=== PATIENT | female | born 1985 | race Caucasian/White ===

== ENCOUNTER 2019-09-08 15:25 | Outpatient (RCR) | payer OTHER, SELFPAY ==
[2019-08-11 11:09] VITALS: BP 119/61; PULSE 107
[2019-08-18 11:22] VITALS: BP 114/58; PULSE 87
[2019-08-25 10:42] VITALS: BP 117/63; PULSE 107
[2019-09-01 11:20] VITALS: BP 124/68; PULSE 80
[2019-09-08 16:21] VITALS: BP 107/64; PULSE 90
== END 2019-09-16 08:00 | disposition home or self-care (01) ==
LOC: ANHOBOP 15:25
PROVIDERS: PCP Internal Medicine Infectious Disease; Visit Provider Obstetrics & Gynecology
DX: O24.419 Gestational diabetes mellitus in pregnancy, unspecified control (principal); Z3A.34 34 weeks gestation of pregnancy; Z3A.35 35 weeks gestation of pregnancy; Z3A.36 36 weeks gestation of pregnancy; Z3A.37 37 weeks gestation of pregnancy; Z3A.38 38 weeks gestation of pregnancy
CPT/HCPCS: 59025

== ENCOUNTER 2019-09-14 10:00 | Inpatient (IN) | payer OTHER, SELFPAY ==
[2019-09-14] VITALS (65 sets, daily range): BP systolic 86–227; BP diastolic 51–170; PULSE 67–141; RESP 14–23; TEMP 36.6–37.1; O2SAT 98–100; BMI 45.1
--- NOTE | 2019-09-14 10:00 | LDADM ---
This patient, Rajani Guo, was admitted to Labor/Delivery/Recovery 118 on 09/14/19 at 10:00. Plans for labor, pain management and were discussed with patient. Patient/family oriented to hospital policies and general routines including ID bracelet, bed and alarms, visiting hours, pain management, procedures, bathroom and other care routines, personal items, smoking policy, room service/diet and guest tray routines, infant security routines, and visiting hours. Patient/Family are encouraged to report perceived risks to care and to ask questions if they do not understand what they are told or what they should do. See OBIX for further documentation.
--- NOTE | 2019-09-14 10:42 | P.PNAN_ITS ---
Anes - Initial Pre Proc Eval Procedure: Operation Date: 09/14/19 12:00 Proposed Procedures p Repeat Section - Osbaldo Mckeon MD Date/Time: 09/14/19 10:42 Surgeon: Osbaldo Mckeon MD Pre Op Diagnosis: Prior Patient Data Age: 33 Gender: F Height: 5 ft 2 in Weight: 112 kg Last Vital Signs Pulse 93 09/14/19 10:31 BP 131/71 09/14/19 10:31 Allergies Allergy/AdvReac Type Severity Reaction Status Date / Time No Known Allergies Allergy Verified 08/18/19 11:01 Home Medications Medication Instructions Recorded Confirmed Type PNV cmb#95-ferrous fumarate-FA 1 tablet PO DAILY 08/18/19 08/25/19 History [] acetaminophen [Tylenol Extra 1,000 mg PO Q6H PRN 08/18/19 08/25/19 History Strength] cetirizine [Zyrtec] 10 mg PO DAILY PRN 08/18/19 08/25/19 History Patient hx anesthesia problems: none Family hx anesthesia problems: none [facility] Past Medical History Medical History (Updated 09/14/19 @ 10:42 by Joaquin Mitchell MD) Morbid obesity Surgical History Surgical History (Updated 09/14/19 @ 10:43 by Joaquin Mitchell MD) History of section Anes - Eval Final PreProcedure Day of Procedure 09/14/19 10:42 Patient weight: morbidly obese Heart: regular rate and rhythm Lungs: clear to auscultation Airway: Mallampati scale class II Neurological: alert and oriented Last oral intake: >/= 8 hours ASA classification: III Emergent: no Anesthetic plan: proceed Anesthesia type and monitoring: regional spinal and standard monitoring Informed Consent: The patient's anesthetic plan and its attendant risks and benefits were discussed with the patient/family/POA. Questions were solicited and answers provided to the satisfaction of the patient/family/POA.
[2019-09-14] MEDS: LACTATED RINGERS 1,000 ML 125 ML IV CONT ×2 (10:55→11:21)
[2019-09-14 10:56] LABS: Basophils Percent Auto 0.2 % (0.2-1.2); Eosinophils Absolute Auto 0.2 K/mm3 (0-0.3); Eosinophils Percent Auto 1.6 % (0-4.4); Hemoglobin 12.2 g/dL (12.0-15.0); Immature Granulocyte Absolute 0.06 K/mm3 (0.00-0.031); Immature Granulocyte Percent A 0.4 % (0-0.5); Lymphocytes Absolute Auto 2.31 K/mm3 (0.9-3.2); Lymphocytes Percent Auto 17.3 % (18.3-44.2); Mean Corpuscular HGB Conc 34.9 g/dl (32-36); Mean Corpuscular Hemoglobin 30.3 pg (26-34); Mean Corpuscular Volume 86.8 fl (80-100); Mean Platelet Volume 10.8 fl (7.4-10.4); Monocytes Absolute Auto 1.2 K/mm3 (0.1-0.6); Monocytes Percent Auto 8.7 % (2.6-8.5); Neutrophils Absolute Auto 9.6 K/mm3 (1.3-6.7); Neutrophils Percent Auto 71.8 % (45.5-73.1); Platelet Count Result 347 k/mm3 (150-375); Red Blood Count 4.03 M/mm3 (4.2-5.4); Red Cell Distribution Width 13.1 % (11.5-14.5); White Blood Count 13.4 K/mm3 (4.5-10.0)
[2019-09-14 11:08] LABS: Glucose Point of Care 76 (65-105)
--- NOTE | 2019-09-14 11:08 | PM.IMHP ---
H&P: HPI History of Present Illness Chief complaint: Prior Narrative: 33-year-old 3 para 1011 at 39 1/7 weeks gestation here for repeat delivery. She has good movement. She is not feeling contractions. She has no leakage of fluid or vaginal bleeding. Her was complicated by an abnormal glucose tolerance test. However, despite several conversations and phone calls, the patient never did go for diabetic education, nutrition counseling, or arrange any home glucose monitoring. We have checked random Accu-Cheks intermittently, which have all been normal. Her most recent ultrasound exam at 33 weeks 2 days gestation demonstrated an estimated weight of 4 lb 13 oz, transverse lie, and a normal amniotic fluid volume. GBS culture was negative. Her blood type is AB-positive, she is rubella immune, hepatitis-B surface antigen negative, RPR negative, and HIV negative. Ultrasound exam suggests normal anatomy. Also, she had a noninvasive screening test which demonstrated low fraction, but she declined a referral to perinatology / genetics. Review of Systems Review of Systems: All systems reviewed & are unremarkable except as noted in HPI and below PMFSH Past Medical History Medical History Morbid obesity Surgical History Surgical History History of section Social History Social History Smoking status: Never smoker Spiritual care concerns: No Comments Past OB: SAB x 1, CS at 41 1/7 weeks of boy weighing 10#12oz. Past [employer]: Menarche at 13 with monthly menses lasting 4-6 days each. No history of abnodmal pap or STI. Meds Home Medications and Allergies Home Medications Medication Instructions Recorded Confirmed Type PNV cmb#95-ferrous fumarate-FA 1 tablet PO DAILY 08/18/19 08/25/19 History [] acetaminophen [Tylenol Extra 1,000 mg PO Q6H PRN 08/18/19 08/25/19 History Strength] cetirizine [Zyrtec] 10 mg PO DAILY PRN 08/18/19 08/25/19 History Allergies Allergy/AdvReac Type Severity Reaction Status Date / Time No Known Allergies Allergy Verified 08/18/19 11:01 Vital Signs Vital Signs - 24 hr 09/14/19 10:31 09/14/19 10:46 09/14/19 11:01 Pulse Rate 93 101 H 96 Blood Pressure 131/71 128/82 126/70 Exam Const: Orientation/consciousness: patient oriented x3 Other: Well-developed, well-nourished female in no acute distress. Neck: Thyroid: thyroid normal Lymphatic: no lymphadenopathy noted (in neck, axilla or inguinal nodes) Resp: Effort & Inspection: normal respiratory effort Auscultation: clear to auscultation bilaterally Cardio: Rate: regular rate Rhythm: regular rhythm Heart sounds: S1 normal heart sound present and S2 normal heart sound present GI: Other: ABD: Soft, nontender, nondistended. No guarding or rebound tenderness. No hepatosplenomegaly. Gravid. NST reactive. TOCO: irregular contractions. : General: Yes no CVA tenderness Other: Cervix closed / thick at last exam. Back/Spine/Pelvis: Back: no CVA tenderness Skin: General skin exam: normal color and no rashes or lesions noted Neuro: General: patient oriented x3 Extrem: Other: Extremities: nontender with no edema Psych: Mental Status: mental status grossly normal Affect: normal affect H&P: Results Labs Labs: Short CBC 09/14/19 Range/Units 10:51 WBC 13.4 H (4.5-10.0) K/mm3 Hgb 12.2 (12.0-15.0) g/dL Hct 35.0 L (37.0-47.0) % Plt Count 347 (150-375) k/mm3 Assessment and Plan Assessment and plan (1) Term : Code(s): Z34.90 - Encounter for supervision of normal , unspecified, unspecified trimester Status: Acute (2) Gestational diabetes mellitus: Code(s): O24.419 - Gestational diabetes mellitus in , unspeci
--- NOTE | 2019-09-14 13:24 | PM.OBPRVD ---
OB - Delivery Note Procedure Delivery date: 09/14/19 Procedure: Procedures Operation Date: 09/14/19 12:00 Actual Procedures Side Surgeon p Repeat Section Not Applicable Osbaldo Mckeon MD events: Previous and Gestational Diabetes Delivery monitor: external FHT and external uterine Route of delivery: (LTCS) Specimen: Yes (Placenta, cord blood) Estimated blood loss (mL): 275 Anesthesia type: Spinal Disposition: PACU Complications: None Narrative: The patient was taken to the operating room where she was prepared and draped in the usual sterile fashion in dorsal supine position with a leftward tilt. She received cefazolin preoperatively. Spinal anesthesia was found to be adequate. A Pfannenstiel skin incision was made along the previous scar line and was carried through to the underlying layer of the fascia. The fascia was incised in the midline and the incision was extended laterally. The fascia was dissected free of the underlying rectus muscles. The rectus muscles were in the midline. The peritoneum was identified, tented up and entered sharply. The peritoneal incision was extended superiorly and inferiorly with good visualization of the bladder. The bladder blade was placed. The vesicouterine peritoneum was identified, tented up and entered sharply. The incision was extended laterally and the bladder flap was developed. The bladder blade was replaced. The uterus was then incised sharply in a transverse fashion along the lower uterine segment. The incision was extended laterally. The 's head was delivered atraumatically to the sterile field, followed by the body. The nose and mouth were bulb suctioned. After a delay, the cord was clamped and cut. The infant was handed off the field. Cord blood was collected. The placenta was removed manually and was passed off the field. The uterus was exteriorized and cleared of all clots and debris. The uterine incision was reapproximated using 0 Monocryl in a running, locked fashion. Excellent hemostasis resulted as did excellent reapproximation of the normal anatomy. The uterus was returned the abdomen. The pelvis was irrigated copiously with warmed normal saline. Rigorous hemostasis was assured. The fascial layer was reapproximated using 0 Vicryl in a running fashion. The skin was closed with a running, subcuticular stitch of 4 0 Vicryl. Dermaflex was applied externally. Sponge, lap, needle and instrument counts were correct. The patient was taken to the recovery room in stable condition. The infant went to the nursery in stable condition. I was present and scrubbed the entire procedure. [place] Baby Date of : 09/14/19 Time of : 12:17 Weeks of gestation at delivery: 39 gender: Male Weight (pounds): 7 Weight (ounces): 12 presentation: vertex Placenta delivery description: Manual Removal and Normal Configuration cord vessel description: 3 Vessels score one minute: 8 score five minutes: 9
--- NOTE | 2019-09-14 13:26 | PM.OBDSVD ---
DS: Admitting Diagnosis Admitting Diagnosis Admitting Diagnosis: IUP at 39 2/7 Prior Gestational diabetes, not compliant, not controlled <Osbaldo Mckeon MD - Last Filed: 10/03/19 12:28> DS: Discharge Diagnosis Discharge Diagnosis (1) History of section: Code(s): Z98.891 - History of uterine scar from previous surgery <Osbaldo Mckeon MD - Last Filed: 10/03/19 12:28> Status: Acute <Osbaldo Mckeon MD - Last Filed: 10/03/19 12:28> (2) Gestational diabetes mellitus: Code(s): O24.419 - Gestational diabetes mellitus in , unspecified control <Osbaldo Mckeon MD - Last Filed: 10/03/19 12:28> Status: Acute <Osbaldo Mckeon MD - Last Filed: 10/03/19 12:28> (3) Term : Code(s): Z34.90 - Encounter for supervision of normal , unspecified, unspecified trimester <Osbaldo Mckeon MD - Last Filed: 10/03/19 12:28> Status: Acute <Osbaldo Mckeon MD - Last Filed: 10/03/19 12:28> OB - DS: Summary OB Procedures : None <Zaki Stein MD - Last Filed: 09/16/19 07:53> OB Procedures Intrapartum: <Zaki Stein MD - Last Filed: 09/16/19 07:53> OB Procedures: : None <Zaki Stein MD - Last Filed: 09/16/19 07:53> Peripartum Data Procedures: Procedures Operation Date: 09/14/19 12:00 Actual Procedures Side Surgeon p Repeat Section Not Applicable Osbaldo Mckeon MD <Osbaldo Mckeon MD - Last Filed: 10/03/19 12:28> Time Spent with Patient Time attestation: Total time spent providing and/or coordinating discharge services: <Osbaldo Mckeon MD - Last Filed: 10/03/19 12:28> DS: Data Data Completed and Pending Pending studies at discharge: Pending at discharge 09/14/19 13:03 Surgical [PTH] Routine <Osbaldo Mckeon MD - Last Filed: 10/03/19 12:28> Labs on day of discharge: Labs from last 24 hours 09/14/19 09/14/19 09/14/19 11:06 10:51 10:51 WBC RBC Hgb Hct MCV MCH MCHC RDW Plt Count MPV Immature Gran % (Auto) Neut % (Auto) Lymph % (Auto) [place] % (Auto) Eos % (Auto) Baso % (Auto) Lymph # (Auto) [place] # (Auto) Eos # (Auto) Baso # (Auto) Abs Immat Gran (auto) Absolute Neuts (auto) Absolute Nucleated RBC Nucleated RBC % POC Capillary Glucose 76 RPR Pending Blood Type AB Positive Antibody Screen Negative 09/14/19 10:51 WBC 13.4 H RBC 4.03 L Hgb 12.2 Hct 35.0 L MCV 86.8 MCH 30.3 MCHC 34.9 RDW 13.1 Plt Count 347 MPV 10.8 H Immature Gran % (Auto) 0.4 Neut % (Auto) 71.8 Lymph % (Auto) 17.3 L [place] % (Auto) 8.7 H Eos % (Auto) 1.6 Baso % (Auto) 0.2 Lymph # (Auto) 2.31 [place] # (Auto) 1.2 H Eos # (Auto) 0.2 Baso # (Auto) 0.0 Abs Immat Gran (auto) 0.06 H Absolute Neuts (auto) 9.6 H Absolute Nucleated RBC 0.0 Nucleated RBC % 0.0 POC Capillary Glucose RPR Blood Type Antibody Screen <Osbaldo Mckeon MD - Last Filed: 10/03/19 12:28> Discharge Plan Discharge Attending physician on discharge: Osbaldo Mckeon <Osbaldo Mckeon MD - Last Filed: 10/03/19 12:28> Osbaldo Mckeon <Zaki Stein MD - Last Filed: 09/16/19 07:53> Consulting providers: Joaquin Mitchell <Osbaldo Mckeon MD - Last Filed: 10/03/19 12:28> Discharging Clinician: Osbaldo Mckeon <Osbaldo Mckeon MD - Last Filed: 10/03/19 12:28> Osbaldo Mckeon <Zaki Stein MD - Last Filed: 09/16/19 07:53> Patient Disposition: Home, Self-Care <Osbaldo Mckeon MD - Last Filed: 10/03/19 12:28> Activity: may shower, may drive after 2 weeks and pelvic rest <Osbaldo Mckeon MD - Last Filed: 10/03/19 12:28> may shower, may drive after 2 weeks and pelvic rest <Zaki Stein MD - Last Filed: 09/16/19 07:53> Diet:
[2019-09-14] MEDS: OXYTOCIN 30 UNITS/NS 500 ML 30 UNITS/500 ML BAG 125 UNITS (14:21)
--- NOTE | 2019-09-14 17:39 | PC.NURSE ---
1510 Pt admitted to second floor OB room 286 per stretcher from labor and delivery after repeat delivery of viable male infant at [address] Mckeon. Mother is and is choosing to breast feed infant. FOB has been with pt, but gone at this time. Mother oriented to room, staffing and procedures; admission folder reviewed. Pt's VSS and assessment WNL.
[2019-09-15] VITALS: BP 135/72; PULSE 108; RESP 20; TEMP 36.9
[2019-09-15 04:00] VITALS: BP 139/83; PULSE 110; RESP 20; TEMP 36.7
[2019-09-15 05:31] LABS: Basophils Percent Auto 0.2 % (0.2-1.2); Eosinophils Absolute Auto 0.3 K/mm3 (0-0.3); Eosinophils Percent Auto 1.5 % (0-4.4); Hematocrit 33.2 % (37.0-47.0); Hemoglobin 11.3 g/dL (12.0-15.0); Immature Granulocyte Absolute 0.09 K/mm3 (0.00-0.031); Immature Granulocyte Percent A 0.5 % (0-0.5); Lymphocytes Absolute Auto 1.64 K/mm3 (0.9-3.2); Lymphocytes Percent Auto 9.2 % (18.3-44.2); Mean Corpuscular Hemoglobin 30.2 pg (26-34); Mean Corpuscular Volume 88.8 fl (80-100); Mean Platelet Volume 11.3 fl (7.4-10.4); Monocytes Absolute Auto 1.3 K/mm3 (0.1-0.6); Monocytes Percent Auto 7.4 % (2.6-8.5); Neutrophils Absolute Auto 14.5 K/mm3 (1.3-6.7); Neutrophils Percent Auto 81.2 % (45.5-73.1); Platelet Count Result 320 k/mm3 (150-375); Red Blood Count 3.74 M/mm3 (4.2-5.4); Red Cell Distribution Width 13.3 % (11.5-14.5); White Blood Count 17.8 K/mm3 (4.5-10.0)
[2019-09-15 06:42] LABS: Rapid Plasma Reagin Non-Reactive (NonReactive)
[2019-09-15] MEDS: MULTIVIT/MIN/PREN/FOL AC/IRON TABLET 1 TAB PO (07:32)
[2019-09-15] MEDS: IBUPROFEN 600 MG TABLET PO ×2 (07:33→18:11)
[2019-09-15] MEDS: DOCUSATE SODIUM 100 MG CAPSULE PO ×2 (07:33→18:10)
[2019-09-15 08:10] VITALS: BP 138/91; PULSE 108; RESP 18; TEMP 37.1; O2SAT 96
--- NOTE | 2019-09-15 08:39 | PM.OBPNVD ---
OB - PN: Subj Subjective Date/time seen: 09/15/19 08:39 Narrative: Pain OK. Tolerating diet. Would like circumcision for son. OB - PN: Obj Data Labs CBC & Chem 7: 09/15/19 04:07 Labs: Laboratory Results - last 24 hr 09/14/19 09/14/19 09/14/19 10:51 10:51 10:51 WBC 13.4 H RBC 4.03 L Hgb 12.2 Hct 35.0 L MCV 86.8 MCH 30.3 MCHC 34.9 RDW 13.1 Plt Count 347 MPV 10.8 H Immature Gran % (Auto) 0.4 Neut % (Auto) 71.8 Lymph % (Auto) 17.3 L [place] % (Auto) 8.7 H Eos % (Auto) 1.6 Baso % (Auto) 0.2 Lymph # (Auto) 2.31 [place] # (Auto) 1.2 H Eos # (Auto) 0.2 Baso # (Auto) 0.0 Abs Immat Gran (auto) 0.06 H Absolute Neuts (auto) 9.6 H Absolute Nucleated RBC 0.0 Nucleated RBC % 0.0 POC Capillary Glucose RPR Non-reactive Blood Type AB Positive Antibody Screen Negative 09/14/19 09/15/19 11:06 04:07 WBC 17.8 H RBC 3.74 L Hgb 11.3 L Hct 33.2 L MCV 88.8 MCH 30.2 MCHC 34.0 RDW 13.3 Plt Count 320 MPV 11.3 H Immature Gran % (Auto) 0.5 Neut % (Auto) 81.2 H Lymph % (Auto) 9.2 L [place] % (Auto) 7.4 Eos % (Auto) 1.5 Baso % (Auto) 0.2 Lymph # (Auto) 1.64 [place] # (Auto) 1.3 H Eos # (Auto) 0.3 Baso # (Auto) 0.0 Abs Immat Gran (auto) 0.09 H Absolute Neuts (auto) 14.5 H Absolute Nucleated RBC 0.0 Nucleated RBC % 0.0 POC Capillary Glucose 76 RPR Blood Type Antibody Screen OB - PN A/P Plan Comments: A: POD#1, doing well. P: Routine care. Reviewed circ. Exam Narrative: Exam Narrative: AVSS I/O OK ABD soft, nontender, fundus firm. Incision c/d/i. EXT nontender
--- NOTE | 2019-09-15 09:05 | WPDANLDNPN2 ---
Anes-Prog Note L&D-Neuraxial Date/Time: 09/15/19 09:05 Neuraxial medications: intrathecal PF morphine Opiod-related complaints: none Patient feedback: Patient satisfied with post-operative pain management.
--- NOTE | 2019-09-15 09:05 | WPDANLDPN2 ---
Anes-Prog Note L&D Date/Time: 09/15/19 09:05 Comfortable throughout: section Neuraxial method: spinal Epidural/Spinal procedure site: clean & non-tender Neuro status: Neuro function grossly intact. Cardiovascular status: normal Respiratory status: normal Airway patency: baseline Mental status: baseline Post-Op hydration status: normal Vital Signs: Last Vital Signs Temp 36.7 C 09/15/19 04:00 Pulse 110 H 09/15/19 04:00 Resp 20 09/15/19 04:00 BP 139/83 09/15/19 04:00 Pulse Ox 99 09/14/19 17:55 I/O: Intake & Output 09/14/19 09/15/19 09/15/19 23:59 07:59 15:59 Intake Total 200 1000 Output Total 200 2000 Balance 0 -1000 Post-procedural complaints: none Patient feedback: Patient satisfied with anesthetic care.
--- NOTE | 2019-09-15 09:30 | PC.NURSE ---
Consult with pt., mother reports is eagerly latching without difficulties or discomfort. Mother reports she had mastitis with last child and had to have abscess drained. Discussed oversupply and early signs of mastitis and to call LC quickly to assist with resolving plugged ducts and mastitis. Suggested mother call OB DR. loza for Antibiotic Treatment. Reviewed infant feeding cues, frequencies, duration of feedings, feeding elimination flow sheet, and signs of adequate intake. Demonstrated stimulation techniques to wake for feeding. Nipple care reviewed. Requested mother call out next feeding for observeation. Instructed mother to call out for RN assistance if she is unable to latch infant for feeding or she has discomfort with nursing. Instructed feeding should be initiated three hours from start of last feeding or if feeding cues are noted before. Mother voiced understanding of information shared.
[2019-09-15 12:15] VITALS: BP 130/83; PULSE 102; RESP 16; TEMP 37; O2SAT 97
[2019-09-15 20:20] VITALS: BP 130/84; PULSE 115; RESP 18; TEMP 36.6; O2SAT 98
[2019-09-16] MEDS: MULTIVIT/MIN/PREN/FOL AC/IRON TABLET 1 TAB PO (07:59)
[2019-09-16] MEDS: DOCUSATE SODIUM 100 MG CAPSULE PO (07:59)
[2019-09-16] MEDS: IBUPROFEN 600 MG TABLET PO (07:59)
[2019-09-16] MEDS: LANOLIN (LANSINOH) 7.5 GM CREAM 1 APPLIC TOPICAL (08:00)
[2019-09-16] MEDS: TETANUS,DIPHTHERIA,AC PERTUSSIS ADULT (0.5 ML) BOOSTRIX IM (08:01)
[2019-09-16 08:10] VITALS: BP 138/93; PULSE 92; RESP 18; TEMP 37.1; O2SAT 100
--- NOTE | 2019-09-16 12:39 | PC.NURSE ---
Patient viewed the discharge video Mother & Baby Care, The First Two Weeks . Patient was given the opportunity and encouraged to ask questions. Patient verbalized understanding of information shared and has been given the mother/baby guide for home reference.
[2019-09-19 13:38] VITALS: BP 147/90; PULSE 91; RESP 20
== END 2019-09-16 13:03 | disposition home or self-care (01) | DRG 540 ==
LOC: ANHLDR 13:27 → ANHOB2 09-16 10:19 → ANHLDR 09-20 11:57 → ANHOB2 09-20 11:57
PROVIDERS: Admitting Provider Obstetrics & Gynecology; PCP Internal Medicine Infectious Disease; Visit Provider Student in an Organized Health Care Education/Training Program
PROC: 10D00Z1 Extraction of Products of Conception, Low, Open Approach (ICD-10-PCS; CPT 59514; principal; 2019-09-14 12:00)
DX: O34.211 Maternal care for low transverse scar from previous cesarean delivery (principal); O24.429 Gestational diabetes mellitus in childbirth, unspecified control; O99.214 Obesity complicating childbirth; E66.01 Morbid (severe) obesity due to excess calories; Z37.0 Single live birth; Z3A.39 39 weeks gestation of pregnancy; Z91.19 Patient's noncompliance with other medical treatment and regimen
CPT/HCPCS: 36415; 85025; 86592; 86850; 86900; 86901; 88307; 90715; A9270; J0131; J2274; J2590; J7120

== ENCOUNTER 2022-01-23 11:13 | Outpatient (CLI) | payer OTHER, SELFPAY ==
[2022-01-23 12:00] LABS: Basophils Absolute Auto 0.1 K/mm3 (0.0-0.1); Basophils Percent Auto 0.9 % (0.2-1.2); Eosinophils Absolute Auto 0.2 K/mm3 (0-0.3); Eosinophils Percent Auto 2.1 % (0-4.4); Hematocrit 39.9 % (37.0-47.0); Hemoglobin 13.1 g/dL (12.0-15.0); Immature Granulocyte Absolute 0.03 K/mm3 (0.00-0.031); Immature Granulocyte Percent A 0.3 % (0-0.5); Lymphocytes Absolute Auto 3.01 K/mm3 (0.9-3.2); Lymphocytes Percent Auto 27.1 % (18.3-44.2); Mean Corpuscular HGB Conc 32.8 g/dl (32-36); Mean Corpuscular Hemoglobin 29.2 pg (26-34); Mean Corpuscular Volume 89.1 fl (80-100); Mean Platelet Volume 9.9 fl (7.4-10.4); Monocytes Absolute Auto 0.7 K/mm3 (0.1-0.6); Monocytes Percent Auto 6.7 % (2.6-8.5); Neutrophils Percent Auto 62.9 % (45.5-73.1); Platelet Count Result 461 k/mm3 (150-375); Red Blood Count 4.48 M/mm3 (4.2-5.4); Red Cell Distribution Width 12.2 % (11.5-14.5); White Blood Count 11.1 K/mm3 (4.5-10.0)
[2022-01-23 12:12] LABS: CRP 1.3 mg/dL (<1.0)
[2022-01-23 13:00] LABS: Erythrocyte Sedimentation Rate 66 mm/hr (0-20)
== END 2022-01-23 11:14 | disposition home or self-care (01) ==
PROVIDERS: PCP Nurse Practitioner Family; Visit Provider Internal Medicine Hematology & Oncology
DX: D75.838 Other thrombocytosis (principal)
CPT/HCPCS: 36415; 82728; 85025; 85652; 86140

== ENCOUNTER 2022-01-24 14:58 | Outpatient (CLI) | payer OTHER, SELFPAY ==
[2022-01-30 13:51] LABS: CALR Exon 9 Mutation Not Detected (Not Detected); CSF3R Exon 14/17 Mutation Not Detected (Not Detected); Clinical Indication Not Given; JAK2 Exon 12 Mutation Not Detected (Not Detected); JAK2 V617F Mutation Not Detected (Not Detected); MPL Exon 10 Mutation Not Detected (Not Detected)
== END 2022-01-24 14:59 | disposition home or self-care (01) ==
PROVIDERS: PCP Nurse Practitioner Family; Visit Provider Internal Medicine Hematology & Oncology
DX: D75.838 Other thrombocytosis (principal)
CPT/HCPCS: 36415; 81219; 81270; 81402; 81403; 81479

== ENCOUNTER 2022-06-11 11:45 | Outpatient (CLI) | payer OTHER, SELFPAY ==
[2022-06-11 11:57] LABS: Basophils Absolute Auto 0.1 K/mm3 (0.0-0.1); Basophils Percent Auto 0.5 % (0.2-1.2); Eosinophils Absolute Auto 0.3 K/mm3 (0-0.3); Eosinophils Percent Auto 2.6 % (0-4.4); Hematocrit 33.9 % (37.0-47.0); Hemoglobin 11.7 g/dL (12.0-15.0); Immature Granulocyte Absolute 0.03 K/mm3 (0.00-0.031); Immature Granulocyte Percent A 0.3 % (0-0.5); Lymphocytes Absolute Auto 2.64 K/mm3 (0.9-3.2); Lymphocytes Percent Auto 26.5 % (18.3-44.2); Mean Corpuscular HGB Conc 34.5 g/dl (32-36); Mean Corpuscular Hemoglobin 30.5 pg (26-34); Mean Corpuscular Volume 88.3 fl (80-100); Mean Platelet Volume 9.3 fl (7.4-10.4); Monocytes Absolute Auto 0.6 K/mm3 (0.1-0.6); Monocytes Percent Auto 5.7 % (2.6-8.5); Neutrophils Absolute Auto 6.4 K/mm3 (1.3-6.7); Neutrophils Percent Auto 64.4 % (45.5-73.1); Platelet Count Result 441 k/mm3 (150-375); Red Blood Count 3.84 M/mm3 (4.2-5.4); Red Cell Distribution Width 12.4 % (11.5-14.5)
== END 2022-06-11 11:46 | disposition home or self-care (01) ==
LOC: ANHLAB 11:47
PROVIDERS: PCP Nurse Practitioner Family; Visit Provider Internal Medicine Hematology & Oncology
DX: D75.838 Other thrombocytosis (principal)
CPT/HCPCS: 36415; 85025

== ENCOUNTER 2022-12-10 12:55 | Outpatient (CLI) | payer OTHER, SELFPAY ==
[2022-12-10 13:12] LABS: Basophils Absolute Auto 0.1 K/mm3 (0.0-0.1); Basophils Percent Auto 0.7 % (0.2-1.2); Eosinophils Absolute Auto 0.3 K/mm3 (0-0.3); Hematocrit 37.4 % (37.0-47.0); Hemoglobin 12.8 g/dL (12.0-15.0); Immature Granulocyte Absolute 0.03 K/mm3 (0.00-0.031); Immature Granulocyte Percent A 0.3 % (0-0.5); Lymphocytes Absolute Auto 2.45 K/mm3 (0.9-3.2); Lymphocytes Percent Auto 23.2 % (18.3-44.2); Mean Corpuscular HGB Conc 34.2 g/dl (32-36); Mean Corpuscular Hemoglobin 30.2 pg (26-34); Mean Corpuscular Volume 88.2 fl (80-100); Mean Platelet Volume 9.4 fl (7.4-10.4); Monocytes Absolute Auto 0.7 K/mm3 (0.1-0.6); Monocytes Percent Auto 6.3 % (2.6-8.5); Neutrophils Percent Auto 66.5 % (45.5-73.1); Platelet Count Result 481 k/mm3 (150-375); Red Blood Count 4.24 M/mm3 (4.2-5.4); Red Cell Distribution Width 11.7 % (11.5-14.5); White Blood Count 10.6 K/mm3 (4.5-10.0)
[2022-12-10 13:16] LABS: Blood Urea Nitrogen 9 mg/dL (8-26); Carbon Dioxide 26 mmol/L (22-30); Chloride 101 mmol/L (98-109); Estimated Glomerular Filt Rate > 60; Glucose 92 mg/dL (70-105); Ionized Calcium (POC) 1.25 mmol/L (1.11-1.31); Potassium 4.4 mmol/L (3.5-4.9); Sodium 138 mmol/L (138-146)
== END 2022-12-10 12:56 | disposition home or self-care (01) ==
PROVIDERS: PCP Nurse Practitioner Family; Visit Provider Internal Medicine Hematology & Oncology
DX: D75.838 Other thrombocytosis (principal)
CPT/HCPCS: 36415; 80047; 85025

== ENCOUNTER 2023-06-08 14:08 | Outpatient (CLI) | payer OTHER, SELFPAY ==
[2023-06-08 14:32] LABS: Basophils Absolute Auto 0.1 K/mm3 (0.0-0.1); Basophils Percent Auto 0.6 % (0.2-1.2); Eosinophils Absolute Auto 0.3 K/mm3 (0-0.3); Eosinophils Percent Auto 2.7 % (0-4.4); Hemoglobin 12.2 g/dL (12.0-15.0); Immature Granulocyte Absolute 0.04 K/mm3 (0.00-0.031); Immature Granulocyte Percent A 0.3 % (0-0.5); Lymphocytes Absolute Auto 3.13 K/mm3 (0.9-3.2); Lymphocytes Percent Auto 25.3 % (18.3-44.2); Mean Corpuscular HGB Conc 33.9 g/dl (32-36); Mean Corpuscular Hemoglobin 30.1 pg (26-34); Mean Corpuscular Volume 88.9 fl (80-100); Mean Platelet Volume 9.8 fl (7.4-10.4); Monocytes Absolute Auto 0.9 K/mm3 (0.1-0.6); Monocytes Percent Auto 7.4 % (2.6-8.5); Neutrophils Absolute Auto 7.9 K/mm3 (1.3-6.7); Neutrophils Percent Auto 63.7 % (45.5-73.1); Platelet Count Result 433 k/mm3 (150-375); Red Blood Count 4.05 M/mm3 (4.2-5.4); Red Cell Distribution Width 11.9 % (11.5-14.5); White Blood Count 12.4 K/mm3 (4.5-10.0)
[2023-06-08 14:36] LABS: Blood Urea Nitrogen 9 mg/dL (8-26); Carbon Dioxide 25 mmol/L (22-30); Chloride 103 mmol/L (98-109); Estimated Glomerular Filt Rate > 60; Glucose 80 mg/dL (70-105); Ionized Calcium (POC) 1.27 mmol/L (1.11-1.31); Potassium 4.3 mmol/L (3.5-4.9); Sodium 138 mmol/L (138-146)
== END 2023-06-08 14:09 | disposition home or self-care (01) ==
LOC: ANHLAB 14:15
PROVIDERS: PCP Nurse Practitioner Family; Visit Provider Internal Medicine Hematology & Oncology
DX: D75.838 Other thrombocytosis (principal)
CPT/HCPCS: 36415; 80047; 85025

== ENCOUNTER 2024-02-09 10:23 | Outpatient (CLI) | payer OTHER, SELFPAY ==
[2024-02-09 10:39] LABS: Hematocrit 32.6 % (37.0-47.0); Hemoglobin 11.3 g/dL (12.0-15.0); Mean Corpuscular HGB Conc 34.7 g/dl (32-36); Mean Corpuscular Volume 89.6 fl (80-100); Mean Platelet Volume 9.9 fl (7.4-10.4); Platelet Count Result 333 k/mm3 (150-375); Red Blood Count 3.64 M/mm3 (4.2-5.4); Red Cell Distribution Width 13.1 % (11.5-14.5)
[2024-02-09 18:19] LABS: Rapid Plasma Reagin Non-Reactive (NonReactive)
== END 2024-02-09 10:24 | disposition home or self-care (01) ==
PROVIDERS: PCP Nurse Practitioner Family; Visit Provider Obstetrics & Gynecology
DX: Z34.93 Encounter for supervision of normal pregnancy, unspecified, third trimester (principal); Z3A.00 Weeks of gestation of pregnancy not specified
CPT/HCPCS: 36415; 85027; 86592; 86850; 86900; 86901

== ENCOUNTER 2024-02-10 10:09 | Inpatient (IN) | payer OTHER, SELFPAY ==
[2024-02-10] VITALS (39 sets, daily range): BP systolic 86–124; BP diastolic 54–87; PULSE 64–190; RESP 13–22; TEMP 36.2–37.1; O2SAT 97–100; BMI 43.5
--- NOTE | 2024-02-10 08:54 | PM.IMHP ---
H&P: HPI History of Present Illness Date/Time: 02/10/24 08:54 Chief Complaint: Here for c section Narrative: 38 y/o at 39 2/7 weeks with prior , here for repeat. Also desires permanent contraception with concurrent tubal ligation. GBS neg. Review of Systems Review of Systems: All systems reviewed & are unremarkable except as noted in HPI and below PMFSH Past Medical History Medical History (Updated 02/10/24 @ 08:57 by Osbaldo Mckeon MD) Morbid obesity Surgical History Surgical History H/O shoulder surgery History of section Family History Family History Other Patient denies significant medical history Social History Social History Smoking status: Never smoker Substance use: never Spiritual care concerns: No Meds Home Medications and Allergies Home Medications Medication Instructions Recorded Confirmed Type vit no.95-ferrous 1 tablet PO DAILY 08/18/19 09/14/19 History fumarate 28 mg-folic acid 800 mcg tablet () aspirin 81 mg tablet 81 mg PO DAILY 01/13/24 01/13/24 History Allergies Allergy/AdvReac Type Severity Reaction Status Date / Time No Known Allergies Allergy Verified 08/18/19 11:01 Exam Const: Orientation/consciousness: patient oriented x3 Other: Well-developed, well-nourished female in no acute distress. Neck: Thyroid: thyroid normal Lymphatic: no lymphadenopathy noted (in neck, axilla or inguinal nodes) Resp: Effort & Inspection: normal respiratory effort Auscultation: clear to auscultation bilaterally Cardio: Rate: regular rate Rhythm: regular rhythm Heart sounds: S1 normal heart sound present and S2 normal heart sound present GI: Other: ABD: Soft, nontender, nondistended, gravid. FHR 150 bpm. FH 39 cm. No guarding or rebound tenderness. No hepatosplenomegaly. : General: Yes no CVA tenderness Other: Cervix closed, thick Back/Spine/Pelvis: Back: no CVA tenderness Skin: General skin exam: normal color and no rashes or lesions noted Neuro: General: patient oriented x3 Extrem: Other: Extremities: nontender with no edema Psych: Mental Status: mental status grossly normal Affect: normal affect Assessment and Plan Assessment and plan (1) Term : Code(s): Z34.90 - Encounter for supervision of normal , unspecified, unspecified trimester Status: Acute Assessment and Plan: A: IUP at 39 2/7 weeks with prior , desired sterility. P: She desires repeat with concurrent bilateral tubal ligation. She understands there are temporary methods of contraception available to her. She understands that there are nonsurgical options as well as surgical options. She understands that tubal ligation will render her permanently sterile. She understands that there is a failure rate associated with tubal ligation, as well as an inherent ectopic gestation risk. Furthermore, she understands risks of surgery to include risks of anesthesia, risks of pain, infection, bleeding, blood products, thromboembolic phenomena and damage to adjacent structures such as bowel, bladder, ureters, blood vessels and nerves. She understands all these risks and elects to proceed with surgery. (2) History of section: Code(s): Z98.891 - History of uterine scar from previous surgery Status: Acute (3) Unwanted fertility: Code(s): Z30.09 - Encounter for other general counseling and advice on contraception Status: Acute
[2024-02-10] MEDS: [UNRECOGNIZED DRUG - REMARK] 1 EACH XX (10:21)
[2024-02-10] MEDS: ACETAMINOPHEN 500 MG TABLET 1000 MG PO (10:46)
[2024-02-10] MEDS: LACTATED RINGERS 1,000 ML 125 ML IV CONT ×2 (10:47→11:54)
[2024-02-10] MEDS: ONDANSETRON INJ 4 MG/2 ML VIAL IV PUSH (10:47)
[2024-02-10] MEDS: FAMOTIDINE 20 MG/2 ML VIAL IV PUSH (10:49)
--- NOTE | 2024-02-10 10:56 | LDADM ---
This patient, Rajani Guo, was admitted to Labor/Delivery/Recovery 120 on 02/10/24 at 10:09. Plans for labor, pain management and were discussed with patient. Patient/family oriented to hospital policies and general routines including ID bracelet, bed and alarms, visiting hours, pain management, procedures, bathroom and other care routines, personal items, smoking policy, room service/diet and guest tray routines, infant security routines, and visiting hours. Patient/Family are encouraged to report perceived risks to care and to ask questions if they do not understand what they are told or what they should do. See OBIX for further documentation.
--- NOTE | 2024-02-10 11:21 | WPDANESEPPF ---
Anes - Initial Pre Proc Eval Procedure: Operation Date: 02/10/24 12:00 Proposed Procedures p Repeat Section with Bilateral Tubal Sterilization - Osbaldo Mckeon MD Date/Time: 02/10/24 11:21 Surgeon: Osbaldo Mckeon MD Pre Op Diagnosis: Patient Data Age: 38 Gender: F Height: 1.57 m Weight: 108 kg Last Vital Signs Pulse 104 H 02/10/24 11:16 BP 117/64 02/10/24 11:16 Pulse Ox 98 02/10/24 11:21 O2 Del Method Room Air 02/10/24 10:54 Allergies Allergy/AdvReac Type Severity Reaction Status Date / Time No Known Allergies Allergy Verified 08/18/19 11:01 Home Medications Medication Instructions Recorded Confirmed Type vit no.95-ferrous 1 tablet PO DAILY 08/18/19 02/10/24 History fumarate 28 mg-folic acid 800 mcg tablet () aspirin 81 mg tablet 81 mg PO DAILY 01/13/24 01/13/24 History Laboratory Tests 02/10/24 10:27 HIV 1&2 Ab/P24 Ag 4thGn Pending Patient hx anesthesia problems: none Family hx anesthesia problems: none Results Review: All pre-operative results and documents have been reviewed as part of the pre-operative evaluation. [facility] Past Medical History Medical History Morbid obesity Surgical History Surgical History H/O shoulder surgery History of section Family History Family History Other Patient denies significant medical history Social History Social History Smoking status: Never smoker Substance use: never Do You Feel Safe in your Home?: Yes Lack of Transportation: No Lack of Food: Never True Current Housing: I Have Housing Concerned About Future Housing: No Difficulty Paying Gas/Electric Bills: No Difficulty Paying for Meds: No Currently Unemployed: No Education: High School Diploma/GED Difficulty w/ Childcare or Family Care: No Spiritual care concerns: No Anes - Eval Final PreProcedure Day of Procedure 10/16/24 11:21 Patient weight: morbidly obese Heart: regular rate and rhythm Lungs: clear to auscultation Airway: Mallampati scale class II Neurological: alert and oriented Last oral intake: >/= 8 hours ASA classification: III Emergent: no Anesthetic plan: proceed Anesthesia type and monitoring: regional spinal and standard monitoring Results Review: All pre-operative results and documents have been reviewed as part of the pre-operative evaluation. Informed Consent: The patient's anesthetic plan and its attendant risks and benefits were discussed with the patient/family/POA. Questions were solicited and answers provided to the satisfaction of the patient/family/POA.
[2024-02-10 11:41] LABS: HIV 1/2 Ab P24 Ag Result Negative (Negative)
--- NOTE | 2024-02-10 11:53 | WPDHPUPDATE1 ---
History and Physical Update Update Date/Time: 02/10/24 11:53 History and Physical has been reviewed, including an updated exam of the patient. There are NO changes in the patient's condition. Risks, benefits, and alternatives have been discussed and questions answered. Patient agrees to proceed with procedure.
[2024-02-10] MEDS: ceFAZolin 2 GM/D5W 50 ML 2 GM/50 ML BAG IVPB (11:59)
--- NOTE | 2024-02-10 12:59 | W.PM.OBCSD ---
OB - Delivery Note Procedure Delivery date: 02/10/24 Pre-op diagnosis: Previous Delivery and Other (desired sterility) Post-op Diagnosis: Same Induction method: None Delivery monitor: External FHT and External Uterine Procedure Performed: Repeat (Repeat low transverse delivery with concurrent bilateral tubal ligation via modified Axson technique) and Tubal Ligation Surgeon: Osbaldo Mckeon MD Anesthesia type: Spinal Description of Procedure/Findings: Findings: Normal appearing uterus, tubes and ovaries. Techniques: The patient was taken to the operating room where she was prepared and draped in the usual sterile fashion in dorsal supine position with a leftward tilt. She received cefazolin preoperatively. Spinal anesthesia was found to be adequate. A Pfannenstiel skin incision was made along the previous scar line and was carried through to the underlying layer of the fascia. The fascia was incised in the midline and the incision was extended laterally. The fascia was dissected free of the underlying rectus muscles. The rectus muscles were in the midline. The peritoneum was identified, tented up and entered sharply. The peritoneal incision was extended superiorly and inferiorly with good visualization of the bladder. The bladder blade was placed. The vesicouterine peritoneum was identified, tented up and entered sharply. The incision was extended laterally and the bladder flap was developed. The bladder blade was replaced. The uterus was then incised sharply in a transverse fashion along the lower uterine segment. The incision was extended laterally. The infant's head was delivered atraumatically to the sterile field, followed by the body. The nose and mouth were bulb suctioned. After a delay, the cord was clamped and cut. The was handed off the field. Cord blood was collected. The placenta was removed manually and was passed off the field. The uterus was exteriorized and cleared of all clots and debris. The uterine incision was reapproximated using 0 Monocryl in a running, locked fashion. Excellent hemostasis resulted as did excellent reapproximation of the normal anatomy. The left fallopian tube was then identified by following it out to the fimbriated end. It was grasped in the midportion with a [place] clamp and a loop of tube was ligated with a free tie of 0 plain gut. The tubal segment was then transected and the specimen was passed off to be sent to pathology. Hemostasis was excellent. Attention was turned to the right fallopian tube which was similarly identified, ligated and transected. Once again, excellent hemostasis resulted. The uterus was returned the abdomen. The pelvis was irrigated copiously with warmed normal saline. Rigorous hemostasis was assured. The fascial layer was reapproximated using 0 Vicryl in a running fashion. The skin was closed with a running, subcuticular stitch of 4 0 Vicryl. Dermaflex was applied externally. Sponge, lap, needle and instrument counts were correct. The patient was taken to the recovery room in stable condition. The went to the nursery in stable condition. I was present and scrubbed the entire procedure. Specimen: Yes (cord blood, segments of bilateral Fallopian tubes) Estimated Blood Loss: 80 Drains: Yes (padilla) Packing: No Pathology: Yes (segments of bilateral Fallopian tubes) Complications: None Condition: Stable Disposition: PACU Baby Date of : 02/10/24 Time of : 12:30 Gestational Age by Date: 39 gender: Female Weight (pounds): 7 Weight (ounces): 10 presentation: vertex Placenta delivery description: Manual Removal and Normal Configuration Cord Vessel Description: 3 Vessels and Delayed Cord Clamping score one minute: 7 score five minutes: 8
--- NOTE | 2024-02-10 13:02 | PM.OBDSVD ---
DS: Admitting Diagnosis Admitting Diagnosis IUP at 39 2/7 weeks Prior Desired sterility DS: Discharge Diagnosis Discharge Diagnosis (1) delivery delivered: Code(s): O82 - Encounter for delivery without indication Status: Acute (2) Unwanted fertility: Code(s): Z30.09 - Encounter for other general counseling and advice on contraception Status: Acute OB - DS: Summary OB Procedures : None OB Procedures Intrapartum: Spontaneous Vag Delivery OB Procedures: : None Peripartum Data Procedures: Procedures Operation Date: 02/10/24 12:00 <No data on this case meets the specified criteria> Time Spent with Patient Time attestation: Total time spent providing and/or coordinating discharge services: DS: Data Data Completed and Pending Labs on day of discharge: Labs from last 24 hours 02/10/24 10:27 HIV 1&2 Ab/P24 Ag 4thGn Negative Discharge Plan Discharge Attending physician on discharge: Osbaldo Mckeon Discharging Clinician: Osbaldo Mckeon Patient Disposition: Home, Self-Care Activity: may shower, may drive after 2 weeks and pelvic rest Diet: regular Wound Care Instructions: incision open to air Discharge Instructions: Call or return if temperature above 100.4? F, increased abdominal pain, increased vaginal bleeding or any new problems. Stand Alone Forms: General Discharge Information Follow-up/Referrals: Osbaldo Mckeon MD [Physician] - 4 Weeks Discharge Medications: New ibuprofen 600 mg tablet 600 mg PO Q6H PRN (Reason: cramps) Qty: 30 0RF oxycodone-acetaminophen [Percocet] 5-325 mg tablet 1 - 2 tablet PO Q6H PRN (Reason: pain) Qty: 30 0RF Continued PNV cmb#[id number]-ferrous fumarate-FA [] 28 mg iron- 800 mcg Tablet 1 tablet PO DAILY Discontinued Adult Low Dose Aspirin 81 mg Tablet 81 mg PO DAILY Date of admission: 02/10/24 10:09 Primary Care Provider: SwapnilAndreea Admitting Provider: Osbaldo Mckeon Attending physician on admission: Osbaldo Mckeon Condition: Stable
[2024-02-10] MEDS: OXYTOCIN 30 UNITS/NS 500 ML 30 UNITS/500 ML BAG 125 UNITS IV CONT (14:17)
[2024-02-10] MEDS: DEXTROSE 5%/0.45% SOD CHL 1,000 ML 125 ML IV CONT (16:53)
[2024-02-10] MEDS: LIDOCAINE 5% PATCH 1 PATCH TRANSDERM (16:54)
[2024-02-10] MEDS: ACETAMINOPHEN 325 MG TABLET 650 MG PO ×2 (16:54→23:58)
[2024-02-10] MEDS: SIMETHICONE 80 MG TAB.CHEW PO (16:55)
[2024-02-10] MEDS: DOCUSATE SODIUM 100 MG CAPSULE PO (16:55)
[2024-02-10] MEDS: KETOROLAC 15 MG/ML VIAL (*BKC) IV PUSH ×2 (16:56→23:58)
--- NOTE | 2024-02-10 17:26 | OBPPTRN ---
Patient transferred to post room #286 via (bed). Support person present. Oriented to unit, room, information board, rooming in, admission packet and security measures. Patient verbalizes understanding.
[2024-02-11 00:04] VITALS: BP 102/59; PULSE 70; RESP 18; TEMP 36.8; O2SAT 99
[2024-02-11 06:06] LABS: Basophils Absolute Auto 0.1 K/mm3 (0.0-0.1); Basophils Percent Auto 0.5 % (0.2-1.2); Eosinophils Absolute Auto 0.3 K/mm3 (0-0.3); Eosinophils Percent Auto 2.8 % (0-4.4); Hematocrit 33.5 % (37.0-47.0); Hemoglobin 11.5 g/dL (12.0-15.0); Immature Granulocyte Absolute 0.04 K/mm3 (0.00-0.031); Immature Granulocyte Percent A 0.3 % (0-0.5); Lymphocytes Absolute Auto 2.34 K/mm3 (0.9-3.2); Lymphocytes Percent Auto 20.4 % (18.3-44.2); Mean Corpuscular HGB Conc 34.3 g/dl (32-36); Mean Corpuscular Hemoglobin 31.1 pg (26-34); Mean Corpuscular Volume 90.5 fl (80-100); Mean Platelet Volume 10.6 fl (7.4-10.4); Monocytes Absolute Auto 1.1 K/mm3 (0.1-0.6); Monocytes Percent Auto 9.1 % (2.6-8.5); Neutrophils Absolute Auto 7.7 K/mm3 (1.3-6.7); Neutrophils Percent Auto 66.9 % (45.5-73.1); Platelet Count Result 323 k/mm3 (150-375); Red Cell Distribution Width 12.9 % (11.5-14.5); White Blood Count 11.5 K/mm3 (4.5-10.0)
[2024-02-11] MEDS: SIMETHICONE 80 MG TAB.CHEW PO ×3 (07:01→18:44)
[2024-02-11] MEDS: MULTIVIT/MIN/PREN/FOL AC/IRON TABLET 1 TAB PO (07:01)
[2024-02-11] MEDS: KETOROLAC 15 MG/ML VIAL (*BKC) IV PUSH ×2 (07:01→13:18)
[2024-02-11] MEDS: ACETAMINOPHEN 325 MG TABLET 650 MG PO ×4 (07:01→23:45)
[2024-02-11] MEDS: DOCUSATE SODIUM 100 MG CAPSULE PO ×2 (07:01→18:44)
[2024-02-11 08:45] VITALS: BP 114/61; PULSE 79; RESP 16; TEMP 36.9; O2SAT 98
[2024-02-11 12:11] VITALS: BP 119/70; PULSE 92; RESP 16; TEMP 36.9; O2SAT 98
--- NOTE | 2024-02-11 13:20 | PM.OBPNVD ---
OB - PN: Subj Subjective Date/time seen: 02/11/24 13:20 Narrative: Pain OK. Tolerating diet. OB - PN: Obj Data Labs 02/11/24 05:44 Labs: Laboratory Results - last 24 hr 02/11/24 05:44 WBC 11.5 H RBC 3.70 L Hgb 11.5 L Hct 33.5 L MCV 90.5 MCH 31.1 MCHC 34.3 RDW 12.9 Plt Count 323 MPV 10.6 H Immature Gran % (Auto) 0.3 Neut % (Auto) 66.9 Lymph % (Auto) 20.4 [place] % (Auto) 9.1 H Eos % (Auto) 2.8 Baso % (Auto) 0.5 Lymph # (Auto) 2.34 [place] # (Auto) 1.1 H Eos # (Auto) 0.3 Baso # (Auto) 0.1 Abs Immat Gran (auto) 0.04 H Absolute Neuts (auto) 7.7 H Absolute Nucleated RBC 0.000 Nucleated RBC % 0.0 OB - PN A/P Plan day: 1 Comments: A: POD#1, doing well. P: Routine care. Exam Narrative: AVSS I/O OK ABD soft, nontender, fundus firm. Incision c/d/i. EXT nontender
[2024-02-11] MEDS: IBUPROFEN 600 MG TABLET PO ×2 (18:44→23:45)
[2024-02-11 20:00] VITALS: BP 138/78; PULSE 92; RESP 20; TEMP 36.9; O2SAT 100
[2024-02-12] MEDS: ACETAMINOPHEN 325 MG TABLET 650 MG PO ×2 (04:51→10:48)
[2024-02-12] MEDS: IBUPROFEN 600 MG TABLET PO ×2 (04:51→10:48)
--- NOTE | 2024-02-12 07:04 | PM.OBPNVD ---
OB - PN: Subj Subjective Date/time seen: 02/12/24 07:04 Patient comments: no complaints and pain well controlled baby status: doing well OB - PN: Obj Data Labs 02/11/24 05:44 OB - PN A/P Plan day: 2 Plan: routine care, discharge home and follow up 6 weeks Time Spent With Patient Time: Total time spent is greater than 50% in coordination of care (as documented) at patient's floor/unit and/or counseling patient: Time with patient: less than 15 minutes Exam Const: General: cooperative, healthy appearing and comfortable Nutritional Appearance: average body habitus HENMT: Head: normal to inspection Resp: Effort & Inspection: normal respiratory effort Cardio: Rate: regular rate Rhythm: regular rhythm Heart sounds: S1 normal heart sound present and S2 normal heart sound present GI: Inspection: normal to inspection
[2024-02-12 08:15] VITALS: BP 131/68; PULSE 87; RESP 16; TEMP 36.8; O2SAT 100
[2024-02-12] MEDS: SIMETHICONE 80 MG TAB.CHEW PO (08:35)
[2024-02-12] MEDS: DOCUSATE SODIUM 100 MG CAPSULE PO (08:35)
[2024-02-12] MEDS: MULTIVIT/MIN/PREN/FOL AC/IRON TABLET 1 TAB PO (08:35)
--- NOTE | 2024-02-12 08:39 | PC.NURSE ---
Consulted with mother concerning needs and she shared her ability to independently latch infant optimally without pain. Mother is feeding appropriately for growth of and understands stimulating to eat if needed. Infant has had appropriate feedings in the last 24 hours meets the outcomes for weight, output, blood sugar and jaundice at this time. Reinforced understanding of milk production, transition of milk, signs of adequate intake, transition of stool, prevention/relief of engorgement, plugged ducts, mastitis, responsive watching for feeding cues, the different methods of stimulating to breastfeed 1-3 hours after the start of the last feeding, community resources, and when to call a provider using the resource of the feeding sheet along with the mom and baby guide. Mother voiced understanding of the information shared, is confident to continue effectively her infant at home, when to call for assistance, denies any additional assistance or education at this time.
[2024-02-13 14:51] VITALS: BP 139/74; PULSE 88; RESP 18; TEMP 37.1; O2SAT 100
== END 2024-02-12 12:50 | disposition home or self-care (01) | DRG 785 ==
LOC: ANHLDR 13:04 → ANHOB2 02-12 09:57 → ANHLDR 02-15 08:06 → ANHOB2 02-15 08:06
PROVIDERS: Admitting Provider Obstetrics & Gynecology; PCP Nurse Practitioner Family; Visit Provider Obstetrics & Gynecology
PROC: 10D00Z1 Extraction of Products of Conception, Low, Open Approach (ICD-10-PCS; CPT 59514; principal; 2024-02-10 12:00)
DX: O34.219 Maternal care for unspecified type scar from previous cesarean delivery (principal); Z30.2 Encounter for sterilization; O99.214 Obesity complicating childbirth; E66.01 Morbid (severe) obesity due to excess calories; Z3A.39 39 weeks gestation of pregnancy; Z37.0 Single live birth
CPT/HCPCS: 36415; 85025; 86703; 88302; A9270; G0432; J0690; J1885; J2274; J2371; J2405; J2590; J7120